=== PATIENT | female | born 1995 | race Caucasian/White ===

== ENCOUNTER 2019-11-14 14:10 | Inpatient (IN) | payer OTHER ==
[~2019-11-14] VITALS: Ht 160 cm; Wt 101.2 kg
[2019-11-14] MEDS ORDERED: MORPHINE SULFATE 10 MG/ML VIAL ONE (14:25)
[2019-11-14] MEDS ORDERED: OXYTOCIN 20 UNITS/LR PREMIX 1,000 ML IV ONE (14:26)
[2019-11-14] MEDS ORDERED: OXYTOCIN 20 UNITS in LACTATED RINGERS 1,000 ML IV SCH (14:40)
[2019-11-14] MEDS ORDERED: LACTATED RINGERS 1,000 ML IV SCH (14:40)
[2019-11-14] MEDS ORDERED: MORPHINE SULFATE 10 MG/ML VIAL IVP PRN (14:40)
[2019-11-14 15:02] VITALS: BP 138/74
[2019-11-14 15:10] LABS: HEMATOCRIT 30.9 % (36-48); HEMOGLOBIN 9.6 g/dL (12.0-16.0); MEAN CORPUSCULAR HEMOGLOBIN 22 pg (27-31); MEAN CORPUSCULAR HGB CONC 31 g/dL (33-37); MEAN CORPUSCULAR VOLUME 72.4 fL (80-94); PLATELET COUNT (AUTO) 442 K/uL (140-450); RED BLOOD CELL COUNT(AUTO) 4.27 MIL/uL (4.20-5.40); RED CELL DISTRIBUTION WIDTH 18.4 % (11.6-13.7); WHITE BLOOD COUNT (AUTO) 15.5 K/uL (4.8-10.8)
[2019-11-14] MEDS ORDERED: CAMERA MC ONE (15:31)
[2019-11-14 15:41] LABS: LYMPHOCYTES % (MANUAL) 7 % (20-46); MONOCYTES % (MANUAL) 5 % (5-12)
[2019-11-14 16:02] LABS: ALBUMIN 2.7 g/dL (3.4-5.0); ANION GAP 13.9 (8-16); CREATININE 0.9 mg/dL (0.6-1.3); POTASSIUM 3.9 mmol/L (3.5-5.1); TOTAL BILIRUBIN 0.3 mg/dL (0.0-1.0)
[2019-11-14] MEDS ORDERED: METHYLERGONOVINE 0.2 MG/ML AMP IM PRN (18:00)
[2019-11-14] MEDS ORDERED: METHYLERGONOVINE 0.2 MG TAB PO PRN (18:00)
[2019-11-14] MEDS ORDERED: BENZOCAINE/MENTHOL 20%-0.5% 60 GM CAN TP PRN (18:00)
[2019-11-14] MEDS ORDERED: IBUPROFEN 800 MG TAB PO PRN (18:00)
[2019-11-14] MEDS ORDERED: OXYTOCIN 10 UNITS/ML VIAL IM PRN (18:00)
[2019-11-14] MEDS ORDERED: PREN-380 PO (18:44)
[2019-11-15 06:13] LABS: HEMATOCRIT 26.6 % (36-48); HEMOGLOBIN 8.5 g/dL (12.0-16.0)
--- NOTE | 2019-11-15 09:03 | NUR ---
PATIENT HAS BEEN SCREENED AND CATEGORIZED LOW NUTRITION RISK. PATIENT WILL BE SEEN WITHIN 7 DAYS OF ADMISSION. 11/21/[address]
== END 2019-11-15 09:35 | disposition home or self-care (01) | DRG 805 ==
LOC: MLD 14:10 → OBSVTOIN 14:10 → MFCC 19:00
PROVIDERS: ADMIT Obstetrics & Gynecology; ATTEND Obstetrics & Gynecology
PROC: 10E0XZZ Delivery of Products of Conception, External Approach (ICD-10-PCS; principal; 2019-11-14)
DX: O03.9 Complete or unspecified spontaneous abortion without complication (principal); O34.32 Maternal care for cervical incompetence, second trimester; Z37.1 Single stillbirth; Z3A.20 20 weeks gestation of pregnancy
CPT/HCPCS: 36415; 59409; 80053; 85018; 85025; 86886; 86900; 86901; 88300; 88305; J2270; J2590

== ENCOUNTER 2019-11-16 09:35 | Emergency (ER) | payer OTHER ==
[~2019-11-16] VITALS: Ht 162.6 cm; Wt 101.2 kg
[~2019-11-16 09:35] MED LIST: PREN-380 PO
[2019-11-16 09:47] VITALS: BP 144/80
--- NOTE | 2019-11-16 10:00 | NUR ---
PATIENT AMBULATED TO BED 6. HANDED ON URINE CUP.
--- NOTE | 2019-11-16 10:36 | NUR ---
Female Television Script Writer accompanied female patient for PHYSICAL EXAM BY DR BROWN
--- NOTE | 2019-11-16 10:37 | NUR ---
C/O VAGINAL CLOT AND LOWER BACK CRAMPING 4/10 X TODAY WITH CHILLS & NAUSEA. PT HAD A STILLBIRTH AT 18 WEEKS AT [facility] [address] FARRIS. DISCHARGED YESTERDAY. DENIES DYSURIA. PT BROUGHT BLOOD CLOT INTO ER TO BE EXAMED. TISSURE PRESENT, APPROX SIZE OF PALM. 1 LMP JUN 22, 2019
--- NOTE | 2019-11-16 10:46 | NUR ---
BLOOT CLOT PLACED IN DIRTY UTILITY FOR LAB SEND OUT
--- NOTE | 2019-11-16 11:18 | NUR ---
POC TAKEN TO LAB AND HANDED TO MINDI PATTERSON TECH
--- NOTE | 2019-11-16 11:32 | NUR ---
US tech at bedside for exam.
--- NOTE | 2019-11-16 12:16 | NUR ---
VS STABLE. PT ALERT AND AWAKE AT BED
--- NOTE | 2019-11-16 12:54 | NUR ---
PT EATING CRACKERS AND DRINKING WATER WITH NO NAUSEA
[2019-11-16 13:20] VITALS: BP 154/67
--- NOTE | 2019-11-16 13:20 | NUR ---
Patient discharged with v/s stable. Written and verbal after care instructions given and explained. Patient verbalized understanding. Ambulatory with steady gait. All questions addressed prior to discharge. Advised to follow up with DR FARRIS. PT GIVEN COPY OF US RESULTS AND US RESULTS REVIEWED WITH PATIENT
== END 2019-11-16 13:20 | disposition home or self-care (01) ==
LOC: MED 09:35
DX: O72.1 Other immediate postpartum hemorrhage (principal)
CPT/HCPCS: 76830; 81002; 81025; 99284; Q0092; 88305